=== PATIENT | female | born 1945 | race Caucasian/White ===

== ENCOUNTER → 2018-09-09 | Outpatient (REF) | payer MEDICARE ==
[~2018-09-09] MED LIST: ALENDRONATE70 MG PO; ATENOLOL25 MG PO; FOSAMAX5 MG PO; LISINOPRIL2.5 MG PO; METFORMIN500 M2 PO; METFORMIN500 MG PO; NEXIUM40 M1 PO; OSCAL 500/1 TAB PO; OXYBUTYNIN5 MG PO; PRILOSEC40 MG PO; ULTRAM50 MG PO; VITAMIN D2000 UNIT PO; ZESTRIL/PRINIV2.5 MG PO; ZOCOR20 M1 PO
[2018-09-09 08:38] LABS: HEMATOCRIT 39.4 % (37.0-47.0); HEMOGLOBIN 12.8 g/dl (12.0-16.0); IMMATURE GRANULOCYTES 0.4 % (0.0-5.0); MEAN CELL VOLUME 92.1 fL CALC (80.0-100.0); MEAN CORPUSCULAR HGB 29.9 pG CALC (26.0-32.0); MEAN CORPUSCULAR HGB CONC 32.5 g/L CALC (32.0-36.0); NEUT# 2.1 thou/uL (2.00-7.15); RED BLOOD COUNT 4.28 mill/uL (4.20-5.60); RED CELL DISTRI WIDTH 13.2 % (11.5-15.5)
[2018-09-09 08:56] LABS: BILIRUBIN, TOTAL 0.4 mg/dL (0.0-1.4); CHOLESTEROL HDL RATIO 2.1 (<4.4 (CALC)); CREATININE 1.2 mg/dL (0.5-1.0); TOTAL PROTEIN 6.8 g/dL (6.3-8.2)
[2018-09-09 09:01] LABS: POTASSIUM 5.3 mmol/l (3.5-5.1)
== END | disposition home or self-care (01) ==
LOC: LAB 07:32
PROVIDERS: ATTEND Internal Medicine Geriatric Medicine
DX: I10 Essential (primary) hypertension (principal); E78.5 Hyperlipidemia, unspecified; E11.9 Type 2 diabetes mellitus without complications

== ENCOUNTER 2019-07-10 | Emergency (ER) | payer MEDICARE ==
[2019-07-10] MEDS ORDERED: TENORMIN PO (21:24)
[2019-07-10 21:26] LABS: HEMATOCRIT 37.1 % (37.0-47.0); HEMOGLOBIN 11.8 g/dl (12.0-16.0); IMMATURE GRANULOCYTES 0.3 % (0.0-5.0); MEAN CELL VOLUME 92.1 fL CALC (80.0-100.0); MEAN CORPUSCULAR HGB 29.3 pG CALC (26.0-32.0); MEAN CORPUSCULAR HGB CONC 31.8 g/L CALC (32.0-36.0); NEUT# 3.77 thou/uL (2.00-7.15); RED BLOOD COUNT 4.03 mill/uL (4.20-5.60); RED CELL DISTRI WIDTH 13.2 % (11.5-15.5)
[2019-07-10 21:38] LABS: ALBUMIN 4.1 g/dL (3.2-5.0); ALKALINE PHOSPHATASE 67 u/l (38-126); ANION GAP 12 (6-22 (CALC)); BUN 24 mg/dL (8-23); BUN/CREATININE RATIO 18 (12-20 (CALC)); CARBON DIOXIDE 26 mmol/l (22-30); CHLORIDE 102 mmol/l (95-108); CREATININE 1.3 mg/dL (0.5-1.0); GFR 40 ML/MIN (>=60 (CALC)); GFR FOR AFR.AMER. 48 ML/MIN (>=60 (CALC)); POTASSIUM 4.3 mmol/l (3.5-5.1); SGOT/AST 17 u/l (9-36); SODIUM 136 mmol/l (137-146); TOTAL PROTEIN 7.7 g/dL (6.3-8.2)
[2019-07-10 21:43] LABS: BILIRUBIN, TOTAL 0.2 mg/dL (0.0-1.4)
[2019-07-10 21:50] LABS: MYOGLOBIN 29 ng/mL (0 - 62)
[2019-07-10 22:53] LABS: URINE BILIRUBIN - DIPSTICK NEGATIVE (NEGATIVE); URINE BLOOD DIPSTICK NEGATIVE (NEGATIVE); URINE COLOR YELLOW; URINE GLUCOSE - DIPSTICK NEGATIVE (NEGATIVE); URINE KETONE NEGATIVE (NEGATIVE); URINE NITRITE - DIPSTICK NEGATIVE (Negative); URINE PH 7.5 (4.5-8.0); URINE PROTEIN - DIPSTICK NEGATIVE (NEG-TRACE); URINE UROBILINOGEN - DIPSTICK 0.2 E.U./dL (0.2)
[2019-07-10 22:56] LABS: URINE LEUK ESTERASE TRACE (NEGATIVE)
== END 2019-07-10 23:07 ==
PROVIDERS: Family Medicine
DX: G45.9 Transient cerebral ischemic attack, unspecified (principal); I10 Essential (primary) hypertension; E11.9 Type 2 diabetes mellitus without complications; F17.200 Nicotine dependence, unspecified, uncomplicated; Z79.84 Long term (current) use of oral hypoglycemic drugs